=== PATIENT | male | born 2000 | race Caucasian/White ===

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

== ENCOUNTER 2021-07-24 18:39 | Emergency (ER) | payer OTHER ==
[~2021-07-24] VITALS: Ht 175.3 cm; Wt 95.5 kg
[~2021-07-24 18:39] MED LIST: ADDERALL20 MG PO; FLONASE NASAL S16 GM NS; TAMIFLU 75MG75 MG PO; ZOFRAN ODT4 MG PO; ZYRTEC 10MG10 MG PO
[2021-07-24 18:44] VITALS: TEMP 98
[2021-07-24 19:35] VITALS: BP 126/80; PULSE 80
== END 2021-07-24 19:35 | disposition home or self-care (01) ==
LOC: COL.ER 18:39
DX: S61.011A Laceration without foreign body of right thumb without damage to nail, initial encounter (principal); W26.0XXA Contact with knife, initial encounter

== ENCOUNTER → 2021-08-07 | Outpatient (CLI) | payer OTHER ==
[2021-08-07 19:35] VITALS: BP 123/76; PULSE 97; TEMP 98.8
== END ==
LOC: COL.ER 19:13
DX: Z48.02 Encounter for removal of sutures (principal)